=== PATIENT | male | born 1940 | race Caucasian/White ===

== ENCOUNTER → 2018-05-31 | Outpatient (CLI) | payer OTHER ==
[~2018-05-31] MED LIST: ADULT LOW DOSE81 MG PO; ALPRAZOLAM2 MG PO; BENADRYL25 MG PO; CARVEDILOL6.25 MG PO; CEFDINIR300 MG PO; CENTRUM SILVER1 EAC4 PO; CO Q-10100 MG PO; COREG PO; COUMADIN7.5 MG PO; ENOXAPARIN80 MG/0.1 SUBQ; FINASTERIDE PO; FINASTERIDE1 MG PO; FISH OIL 1,0001 EAC5 PO; FUROSEMIDE 40 M40 M1 PO; GLUCOSAMINE CH1 EAC7 PO; K-DUR 20 MEQ T20 MEQ PO; LISINOPRIL20 MG PO; METROGEL TOP; METROGEL55 GM TOP; MOBIC15 MG PO; MULTIVITAMINS PO; PRAVASTATIN SOD40 MG PO; SOTALOL 120 MG120 MG PO; SOTALOL160 MG PO; TEARS NATURALE1 EACH OPHTHALMIC; TESSALON PERLE100 M1 PO; VITAMIN D1000 UNI1 PO; ZETIA10 MG PO
== END ==
LOC: RAD 08:43
DX: R05 Cough (principal)

== ENCOUNTER → 2021-02-02 | Outpatient (CLI) | payer OTHER | LOC: CAT 09:04 | PROVIDERS: ATTEND Family Medicine | DX: M47.816 Spondylosis without myelopathy or radiculopathy, lumbar region (principal); I70.0 Atherosclerosis of aorta; M46.1 Sacroiliitis, not elsewhere classified; M48.061 Spinal stenosis, lumbar region without neurogenic claudication; M50.20 Other cervical disc displacement, unspecified cervical region; M47.812 Spondylosis without myelopathy or radiculopathy, cervical region; G89.29 Other chronic pain ==

== ENCOUNTER → 2021-02-24 | Outpatient (CLI) | payer OTHER | LOC: ULTRA 08:49 | PROVIDERS: ATTEND Family Medicine | DX: K76.89 Other specified diseases of liver (principal); N28.1 Cyst of kidney, acquired; R16.0 Hepatomegaly, not elsewhere classified ==